=== PATIENT | female | born 1975 ===

== ENCOUNTER 2017-02-08 07:40 | Emergency (ER) | payer OTHER ==
[2017-02-08 07:47] VITALS: BP 123/80; PULSE 71; RESP 18; TEMP 98; O2SAT 98
[2017-02-08] MEDS ORDERED: Naproxen 550 mg Tab PO STA (08:13)
[2017-02-08] MEDS ORDERED: Naproxen 550 mg Tab PO ONE (08:23)
[2017-02-08 08:37] LABS: RBC URINE 1 /hpf (0-3); URINE BILIRUBIN NEGATIVE (NEGATIVE); URINE BLOOD NEGATIVE (NEGATIVE); URINE COLOR Straw (YELLOW); URINE GLUCOSE (UA) NORMAL (Normal); URINE KETONE NEGATIVE (NEGATIVE); URINE LEUKOCYTE ESTERASE NEG Leu/uL (Negative); URINE PROTEIN NEGATIVE (NEGATIVE); URINE UROBILINOGEN NORMAL mg/dL (0.2-1.0); WBC URINE < 1 /hpf (0-5)
--- NOTE | 2017-02-08 08:39 | C.PDOC ---
History Of Present Illness 41-year-old female presents to the emergency department with complaints of body aches, pain in B/L legs, upper back, and arms. Patient has not tried any medication for pain relief. She denies cough, fever, runny nose, sore throat, nausea/vomiting/diarrhea, dysuria/hematuria, falls or injuries. Time Seen by Provider: 02/08/17 07:58 Chief Complaint (Nursing): Lower Extremity Problem/Injury History Per: Patient History/Exam Limitations: no limitations Onset/Duration Of Symptoms: Days Current Symptoms Are (Timing): Still Present Severity: Moderate Past Medical History Reviewed: Historical Data, Nursing Documentation, Vital Signs Vital Signs: Last Vital Signs Temp 98 F 02/08/17 07:45 Pulse 71 02/08/17 07:45 Resp 18 02/08/17 09:01 BP 123/80 02/08/17 07:45 Pulse Ox 98 02/20/17 06:18 - Medical History PMH: No Chronic Diseases Family History: States: No Known Family Hx - Social History Hx Alcohol Use: No Hx Substance Use: No - Immunization History Hx Tetanus Toxoid Vaccination: No Hx Influenza Vaccination: No Hx Pneumococcal Vaccination: No Review Of Systems Except As Marked, All Systems Reviewed And Found Negative. Constitutional: Positive for: Malaise. Negative for: Fever, Chills Cardiovascular: Negative for: Chest Pain, Palpitations Respiratory: Negative for: Cough, Shortness of Breath Gastrointestinal: Positive for: Abdominal Pain (resolved). Negative for: Nausea , Vomiting, Diarrhea Genitourinary: Negative for: Dysuria, Hematuria Skin: Negative for: Rash Neurological: Negative for: Weakness, Numbness, Headache Physical Exam - Physical Exam Appears: Well, Non-toxic, No Acute Distress Skin: Warm, Dry, No Rash Head: Normacephalic Eye(s): bilateral: Normal Inspection Oral Mucosa: Moist Throat: Normal, No Erythema, No Exudate Neck: Normal, Normal ROM, Supple Cardiovascular: Rhythm Regular Respiratory: Normal Breath Sounds, No Rales, No Rhonchi, No Wheezing Gastrointestinal/Abdominal: Normal Exam, Bowel Sounds, Soft, No Tenderness, No Guarding, No Rebound Extremity: Normal ROM Neurological/Psych: Oriented x3 ED Course And Treatment O2 Sat by Pulse Oximetry: 98 (Ra) Pulse Ox Interpretation: Normal Progress Note: Plan: UA, UPreg, accucheck ordered and reviewed. Patient given PO Naprosyn. Reevaluation Time: 08:50 Reassessment Condition: Improved (Patient reassessed, states she is feeling better and pain has resolved. UA, Upreg & accucheck normal. Patient discharged home, given Rx for Naprosyn. She was instructed to follow up with PMD/clinic in 1-2 days, and understands she should return to ED if symptoms worsen.) Disposition Counseled Patient/Family Regarding: Diagnosis, Need For Followup, Rx Given - Disposition Referrals: [facility] [Outside] Disposition: HOME/ ROUTINE Disposition Time: 08:50 Condition: STABLE Additional Instructions: SEGUIMIENTO CON VAZQUEZ DOCTOR / CLNICA EN 1-2 SANZ USE LOS MEDICAMENTOS QUE MALENA NECESARIOS BEBER MUCHO LQUIDO DEVUELVA A LA BRAD DE EMERGENCIA SI LOS SNTOMAS EMPEORARAN Prescriptions: Naproxen [Naprosyn Tab] 375 mg PO BID PRN #20 tab PRN Reason: pain Instructions: Arthralgia (ED) Print Language: ARMENIAN - POA Present On Arrival: None - Clinical Impression Clinical Impression: Arthralgia - Scribe Statement The provider has reviewed the documentation as recorded by the Chino Morales Provider Attestation: All medical record entries made by the Mireyaibe were at my direction and personally dictated by me. I have reviewed the chart and agree that the record accurately reflects my personal performance of the history, physical exam, medical decision making, and the department course for this patient. I have also personally directed, reviewed, and agree with the discharge instructions and disposition.
== END 2017-02-08 09:02 | disposition home or self-care (01) ==
LOC: C.ER 07:40
DX: M79.605 Pain in left leg (principal); M79.604 Pain in right leg; M54.6 Pain in thoracic spine; M79.602 Pain in left arm; M79.601 Pain in right arm

== ENCOUNTER 2017-07-21 17:10 | Emergency (ER) | payer OTHER ==
[2017-07-21 17:58] LABS: RBC URINE 305 /hpf (0-3); URINE BACTERIA RARE (<OCC); URINE BILIRUBIN NEGATIVE (NEGATIVE); URINE BLOOD 3+ (NEGATIVE); URINE COLOR Yellow (YELLOW); URINE GLUCOSE (UA) NORMAL (Normal); URINE KETONE NEGATIVE (NEGATIVE); URINE PROTEIN NEGATIVE (NEGATIVE); URINE UROBILINOGEN NORMAL mg/dL (0.2-1.0); WBC URINE 15 /hpf (0-5)
[2017-07-21 18:00] LABS: URINE LEUKOCYTE ESTERASE 1+ Leu/uL (Negative)
[2017-07-21 18:11] LABS: BASO % 0.6 % (0.0-2.0); EOS # 0.4 K/uL (0.0-0.7); EOS % 4.8 % (0.0-4.0); HEMATOCRIT 35.1 % (34.0-47.0); LYMPH % 25.5 % (20.0-40.0); MEAN CORPUSCULAR HEMOGLOBIN 27.7 pg (27.0-31.0); MEAN CORPUSCULAR HGB CONC 33.8 g/dL (33.0-37.0); MEAN PLATELET VOLUME 8.7 fL (7.2-11.7); MONO # 0.7 K/uL (0.0-0.8); MONO % 9.3 % (0.0-10.0); RED CELL DISTRIBUTION WIDTH 14.2 % (11.5-14.5); WHITE BLOOD COUNT 7.9 K/uL (4.8-10.8)
--- NOTE | 2017-07-21 18:20 | C.PDOC ---
History Of Present Illness Patient is a 41 y/o female who presents to the ED with a complaint of painless vaginal bleeding at 8 weeks gestation since . Denies fever or chills. Patient denies any other pain at this time. Time Seen by Provider: 07/21/17 17:55 Chief Complaint (Nursing): Female Genitourinary History Per: Patient History/Exam Limitations: no limitations Onset/Duration Of Symptoms: Days (bleeding began . ) Current Symptoms Are (Timing): Still Present Associated Symptoms: denies: Fever, Chills Recent travel outside of the [place]: No Abnormal Vaginal Bleeding: Yes : 3 Para: 2 Past Medical History Reviewed: Historical Data, Nursing Documentation, Vital Signs Vital Signs: Last Vital Signs Temp 98.3 F 07/21/17 20:02 Pulse 98 H 07/21/17 20:02 Resp 16 07/21/17 20:02 BP 122/83 07/21/17 20:02 Pulse Ox 100 07/21/17 20:12 - Medical History PMH: No Chronic Diseases Surgical History: No Surg Hx Family History: States: Unknown Family Hx - Social History Hx Alcohol Use: No Hx Substance Use: No - Immunization History Hx Tetanus Toxoid Vaccination: No Hx Influenza Vaccination: No Hx Pneumococcal Vaccination: No Review Of Systems Except As Marked, All Systems Reviewed And Found Negative. Genitourinary: Positive for: Vaginal Bleeding (painless. ) Physical Exam - Physical Exam Appears: Well, Non-toxic, No Acute Distress Skin: Normal Color, Dry Head: Atraumatic, Normacephalic Oral Mucosa: Moist Chest: Symmetrical Cardiovascular: Rhythm Regular, No Murmur Respiratory: Normal Breath Sounds, No Rales, No Rhonchi, No Wheezing Gastrointestinal/Abdominal: Soft, No Tenderness Neurological/Psych: Oriented x3, Normal Speech, Normal Cognition ED Course And Treatment - Laboratory Results Result Diagrams: 07/21/17 18:07 07/21/17 18:07 O2 Sat by Pulse Oximetry: 100 (room air) Pulse Ox Interpretation: Normal - CT Scan/US US A/P Other Rad Studies (CT/US): Interpreted By Me, Read By Radiologist CT/US Interpretation: 5 week 4 day single intrauterine gestation with pole and yolk sac, embryonic cardiac activity not detected. Followup advised to document embryonic viability. Medical Decision Making Medical Decision Making: ro ectopic miscarrage Plan: Blood work, UA, and US transvag ordered. 730: pt reassesed no vb in os, os closed. discussed results of us with dr jose. states pt can f/u outpt tommorow. pt states she does have obgyn appt tommorow. return precautions advised. Disposition - Disposition Disposition: HOME/ ROUTINE Disposition Time: 19:46 Condition: STABLE Additional Instructions: please follow up with your obgyn. return to er with worsening symptoms or concerns. Prescriptions: Cefpodoxime [Vantin] 100 mg PO BID #14 tab Instructions: Spontaneous Miscarriage (ED), Urinary Tract Infection in Women ( [place]) Forms: [employer] (Beninese) Print Language: TAMAZIGHT - Clinical Impression Clinical Impression: Miscarriage - Scribe Statement The provider has reviewed the documentation as recorded by the Scribe Adriana Chavez All medical record entries made by the Scribe were at my direction and personally dictated by me. I have reviewed the chart and agree that the record accurately reflects my personal performance of the history, physical exam, medical decision making, and the department course for this patient. I have also personally directed, reviewed, and agree with the discharge instructions and disposition.
[2017-07-21 18:22] LABS: INR 1.1
[2017-07-21 18:33] LABS: ALB/GLOB RATIO 1.2 (1.0-2.1); ALKALINE PHOSPHATASE 47 U/L (38-126); ALT/SGPT 31 U/L (9-52); AST/SGOT 24 U/L (14-36); BILIRUBIN,TOTAL 0.2 mg/dL (0.2-1.3); BLOOD UREA NITROGEN 10 mg/dL (7-17); CALCIUM 9.6 mg/dl (8.6-10.4); CARBON DIOXIDE 25 mmol/L (22-30); CHLORIDE 100 mmol/L (98-107); GFR AFRICAN-AMERICAN > 60; GLUCOSE,RANDOM 107 mg/dL (65-105); POTASSIUM 3.9 mmol/L (3.6-5.2); SODIUM 139 mmol/L (132-148); TOTAL PROTEIN 7.6 g/dL (6.3-8.3)
--- NOTE | 2017-07-21 19:31 | US ---
EXAM: US First Trimester, Transabdominal CLINICAL HISTORY: 41 years old, female; Signs and symptoms; Lmp or gestational age (in weeks): 05/30/17; Other: Preg. Pain and bleeding; ; Additional info: Abd pain and TECHNIQUE: Real-time transabdominal obstetrical ultrasound of the maternal pelvis and a first trimester with image documentation. COMPARISON: There are no prior studies for comparison. FINDINGS: Bladder: Bladder is incompletely distended which limits evaluation of the bladder and the pelvis. Gestation: Uterus: Uterus is retroflexed. The uterus measures approximately 10.4 x 6.3 x 7.4 cm. There is a small sac in the endometrium difficult to evaluate. Ovaries: Neither ovary could be identified Free fluid: There is no free fluid. IMPRESSION: Limited transabdominal evaluation due to incomplete bladder distention and body habitus; early intrauterine gestation EXAM: US , Transvaginal EXAM DATE/TIME: 07/21/2017 6:02 PM CLINICAL HISTORY: 41 years old, female; Signs and symptoms; Lmp or gestational age (in weeks): 05/30/17; Other: Preg. Pain and bleeding; ; Additional info: Abd pain and TECHNIQUE: Real-time transvaginal obstetrical ultrasound of the maternal pelvis and a first trimester with image documentation. Transvaginal imaging was used for better evaluation of the fetus and adnexa. COMPARISON: There are no prior studies for comparison. FINDINGS: Gestation: There is a single gestational sac in uterus. Gestational sac has mean diameter 10.5 mm. There is a yolk sac, 4.9 mm in diameter. [place] rump length measures approximately 3.8 mm. Embryonic cardiac activity could not be detected. Uterus: Uterus measures approximately 8.5 x 6 x 7 cm. The cervix measures 3 cm in length. Ovaries: Right ovary measures 2.6 x 1.6 x 2.3 cm. Left ovary measures 2.8 x 1.7 x 2 cm. There are multiple small follicles. There is intraovarian blood flow. Free fluid: There is no free fluid. IMPRESSION: 5 week 4 day single intrauterine gestation with pole and yolk sac, embryonic cardiac activity not detected Followup advised to document embryonic viability
[2017-07-21 19:39] VITALS: O2SAT 100
[2017-07-21 20:04] VITALS: BP 122/83; PULSE 98; RESP 16; TEMP 98.3
== END 2017-07-21 20:08 | disposition home or self-care (01) ==
LOC: C.ER 17:10
DX: O03.9 Complete or unspecified spontaneous abortion without complication (principal); Z3A.08 8 weeks gestation of pregnancy

== ENCOUNTER 2017-07-23 18:51 | Emergency (ER) | payer OTHER ==
[2017-07-23 19:12] VITALS: TEMP 97.9
[2017-07-23 19:38] LABS: RBC URINE 26 /hpf (0-3); URINE BILIRUBIN NEGATIVE (NEGATIVE); URINE BLOOD 3+ (NEGATIVE); URINE COLOR Yellow (YELLOW); URINE GLUCOSE (UA) NORMAL (Normal); URINE KETONE NEGATIVE (NEGATIVE); URINE LEUKOCYTE ESTERASE NEG Leu/uL (Negative); URINE PROTEIN NEGATIVE (NEGATIVE); URINE UROBILINOGEN NORMAL mg/dL (0.2-1.0); WBC URINE 1 /hpf (0-5)
--- NOTE | 2017-07-23 20:28 | C.PDOC ---
History Of Present Illness 41 y/o female, who is currently around 8 weeks , presents to the ED for evaluation of vaginal bleeding which began earlier today. Patient was seen in [facility] on 07/21, was diagnosed with miscarriage and advised to follow up with her TRACTOR OPERATOR HELPER. Patient states she followed up with her doctor as advised, but is unaware of what they advised her and now presents to the ED for further evaluation. She denies fever, chills, nausea, vomiting. Time Seen by Provider: 07/23/17 20:02 Chief Complaint (Nursing): Female Genitourinary History Per: Patient History/Exam Limitations: no limitations Onset/Duration Of Symptoms: Hrs Current Symptoms Are (Timing): Still Present Associated Symptoms: denies: Fever, Chills Additional History Per: Patient Abnormal Vaginal Bleeding: Yes Past Medical History Reviewed: Historical Data, Nursing Documentation, Vital Signs Vital Signs: Last Vital Signs Temp 97.9 F 07/23/17 22:28 Pulse 82 07/23/17 22:28 Resp 20 07/23/17 22:28 BP 107/71 07/23/17 22:28 Pulse Ox 100 07/23/17 23:13 - Medical History PMH: No Chronic Diseases Surgical History: No Surg Hx Family History: States: Unknown Family Hx - Social History Hx Alcohol Use: No Hx Substance Use: No - Immunization History Hx Tetanus Toxoid Vaccination: No Hx Influenza Vaccination: No Hx Pneumococcal Vaccination: No Review Of Systems Constitutional: Negative for: Fever, Chills Gastrointestinal: Negative for: Nausea, Vomiting Genitourinary: Positive for: Vaginal Bleeding Physical Exam - Physical Exam Appears: Non-toxic, No Acute Distress Skin: Normal Color, Warm, Dry Head: Atraumatic, Normacephalic Eye(s): bilateral: Normal Inspection Oral Mucosa: Moist Neck: Supple Chest: Symmetrical, No Deformity, No Tenderness Cardiovascular: Rhythm Regular, No Murmur Respiratory: Normal Breath Sounds, No Rales, No Rhonchi, No Wheezing Gastrointestinal/Abdominal: Tenderness (mild, suprapubic ), No Guarding, No Rebound Back: Normal Inspection, No Vertebral Tenderness, No Paraspinal Tenderness Extremity: Normal ROM, Capillary Refill (less than 2 seconds ) Neurological/Psych: Oriented x3, Normal Speech, Normal Cognition Gait: Steady ED Course And Treatment - Laboratory Results Result Diagrams: 07/23/17 20:32 07/23/17 20:32 O2 Sat by Pulse Oximetry: 100 (on RA) Pulse Ox Interpretation: Normal - CT Scan/US Transvaginal Ultrasound Other Rad Studies (CT/US): Interpreted By Me, Read By Radiologist, Radiology Report Reviewed CT/US Interpretation: EXAM: US , Transvaginal. CLINICAL HISTORY: 41 years old, female; Pain; complicated by abdominal or pelvic pain; Generalized. abdominal pain; First trimester; Gestational age or lmp: [id number] ; ; Prior surgery; Surgery. type: Tummy tuck; Additional info: Abd pain , . TECHNIQUE: Real-time transvaginal obstetrical ultrasound of the maternal pelvis and a first trimester . with image documentation. Transvaginal imaging was used for better evaluation of the fetus and. adnexa. COMPARISON: No relevant prior studies available. FINDINGS: Gestation: The gestational sac is flattened. There is a yolk sac present. No pole is seen. The. sac measures 2.1 x 1 x 0.7 cm. Placenta/amniotic fluid: Cannot be adequately evaluated due to the early gestational age. Uterus/cervix: Uterus is retroverted and retroflexed. No myometrial mass. Ovaries: Right ovary measures 2 point 2 x 2 by 1.8 cm. Blood flow is demonstrated within the right. ovary on color Doppler examination. The left ovary measures 2.7 x 1.4 x 1.8 cm. Blood flow seen in. the left ovary on color Doppler examination. No mass. Free fluid: No free fluid. IMPRESSION: 1. A single intrauterine with an estimated menstrual age of 5 weeks and 6 days plus or -0. weeks and 3 days. No pole. No cardiac activity. The sac is a misshapen which is concerning for. potential loss. Followup might be considered to determine viability. 2. Expected date of confinement is 03/19/2018 Medical Decision Making Medical Decision Making: Impression: 41 y/o female with vaginal bleeding Plan: * labs * US transvaginal * reassess and disposition Progress: labs and US ordered and reviewed. beta decreasing no pole visulaized. pelivc mild amount of bleeding with small clot. discused in detail with dr jose. states pt will need outpt obgyn f/ u. pt is having miscarriage. adivsed pt may need out pt d and c. instructions, diagnosis, and return precautions advised in detail with pt via tajik tranlation. pt verbalizes understanding. Disposition - Disposition Referrals: [facility] [Outside] [facility] [[facility]] [facility] [Outside] Disposition: HOME/ ROUTINE Disposition Time: 00:05 Condition: GOOD Additional Instructions: please follow up wiht your doctor. return to er with worsening symptoms or concerns. you should see your controls design engineer in next 1-2 days. you may need an additional procedure Instructions: Spontaneous Miscarriage (ED) Forms: [employer] (Yoruba) - Clinical Impression Clinical Impression: Miscarriage - Scribe Statement The provider has reviewed the documentation as recorded by the Scribe (Melisa Castillo) Provider Attestation: All medical record entries made by the Scribe were at my direction and personally dictated by me. I have reviewed the chart and agree that the record accurately reflects my personal performance of the history, physical exam, medical decision making, and the department course for this patient. I have also personally directed, reviewed, and agree with the discharge instructions and disposition.
[2017-07-23 20:35] LABS: BASO # 0.1 K/uL (0.0-0.2); BASO % 0.9 % (0.0-2.0); EOS # 0.4 K/uL (0.0-0.7); EOS % 4.4 % (0.0-4.0); HEMATOCRIT 34.4 % (34.0-47.0); LYMPH # 2.1 K/uL (1.0-4.3); LYMPH % 25.1 % (20.0-40.0); MEAN CELL VOLUME 82.6 fL (81.0-99.0); MEAN CORPUSCULAR HEMOGLOBIN 27.5 pg (27.0-31.0); MEAN CORPUSCULAR HGB CONC 33.3 g/dL (33.0-37.0); MEAN PLATELET VOLUME 8.7 fL (7.2-11.7); MONO # 0.7 K/uL (0.0-0.8); MONO % 8.7 % (0.0-10.0); NRBC % 0.1 % (0.0-2.0); WHITE BLOOD COUNT 8.4 K/uL (4.8-10.8)
[2017-07-23 20:45] LABS: CHLORIDE 102 mmol/L (98-107); POTASSIUM 4.3 mmol/L (3.6-5.2); SODIUM 137 mmol/L (132-148)
[2017-07-23 20:47] LABS: AST/SGOT 23 U/L (14-36); BILIRUBIN,TOTAL 0.4 mg/dL (0.2-1.3); CARBON DIOXIDE 25 mmol/L (22-30); GFR AFRICAN-AMERICAN > 60
[2017-07-23 20:48] LABS: ALB/GLOB RATIO 1.3 (1.0-2.1); ALKALINE PHOSPHATASE 44 U/L (38-126); ALT/SGPT 32 U/L (9-52); BLOOD UREA NITROGEN 14 mg/dL (7-17); GLUCOSE,RANDOM 88 mg/dL (65-105); TOTAL PROTEIN 7.1 g/dL (6.3-8.3)
[2017-07-23 20:57] LABS: INR 1.1
--- NOTE | 2017-07-23 21:49 | US ---
EXAM: US , Transvaginal CLINICAL HISTORY: 41 years old, female; Pain; complicated by abdominal or pelvic pain; Generalized abdominal pain; First trimester; Gestational age or lmp: [id number]; ; Prior surgery; Surgery type: Tummy tuck; Additional info: Abd pain, TECHNIQUE: Real-time transvaginal obstetrical ultrasound of the maternal pelvis and a first trimester with image documentation. Transvaginal imaging was used for better evaluation of the fetus and adnexa. COMPARISON: No relevant prior studies available. FINDINGS: Gestation: The gestational sac is flattened. There is a yolk sac present. No pole is seen. The sac measures 2.1 x 1 x 0.7 cm. Placenta/amniotic fluid: Cannot be adequately evaluated due to the early gestational age. Uterus/cervix: Uterus is retroverted and retroflexed. No myometrial mass. Ovaries: Right ovary measures 2 point 2 x 2 by 1.8 cm. Blood flow is demonstrated within the right ovary on color Doppler examination. The left ovary measures 2.7 x 1.4 x 1.8 cm. Blood flow seen in the left ovary on color Doppler examination. No mass. Free fluid: No free fluid. IMPRESSION: 1. A single intrauterine with an estimated menstrual age of 5 weeks and 6 days plus or -0 weeks and 3 days. No pole. No cardiac activity. The sac is a misshapen which is concerning for potential loss. Followup might be considered to determine viability. 2. Expected date of confinement is 03/19/2018 EXAM: US First Trimester, Transabdominal EXAM DATE/TIME: Exam ordered 07/23/2017 8:09 PM CLINICAL HISTORY: 41 years old, female; Pain; complicated by abdominal or pelvic pain; Generalized abdominal pain; First trimester; Gestational age or lmp: [id number]; ; Prior surgery; Surgery type: Tummy tuck; Additional info: Abd pain, TECHNIQUE: Real-time transabdominal obstetrical ultrasound of the maternal pelvis and a first trimester with image documentation. COMPARISON: US - PREG 1ST TRIMESTER/OB TV 07/21/2017 6:18:48 PM FINDINGS: Placenta/amniotic fluid: Cannot be adequately evaluated due to the early gestational age. Uterus/cervix: The uterus measures 10.2 x 6.3 x 7.2 cm. No myometrial mass. Ovaries: The endometrial stripe and ovaries are not clearly seen on the transabdominal portion of the study. Free fluid: No free fluid. IMPRESSION: The ovaries and endometrial stripe are not clearly seen. Please see the report for the transvaginal portion of the examination which followed this exam.
[2017-07-23 22:28] VITALS: BP 107/71; PULSE 82; RESP 20
[2017-07-23 22:29] VITALS: O2SAT 100
== END 2017-07-23 22:34 | disposition home or self-care (01) ==
LOC: C.ER 18:51
DX: O03.9 Complete or unspecified spontaneous abortion without complication (principal); Z3A.08 8 weeks gestation of pregnancy